=== PATIENT | female | born 1975 | race Caucasian/White ===

== ENCOUNTER 2020-03-24 09:01 | Emergency (ER) | payer OTHER ==
[~2020-03-24] VITALS: Ht 165.1 cm; Wt 74.8 kg
[2020-03-24] MEDS ORDERED: IRON1TAB4 PO (10:57)
== END 2020-03-24 11:20 | disposition home or self-care (01) ==
LOC: ER 09:01 → EDBD 09:02 → ER 09:02
DX: D64.89 Other specified anemias (principal)